=== PATIENT | female | born 1945 | race Caucasian/White ===

== ENCOUNTER 2022-01-01 14:21 | Emergency (ER) | payer MEDICARE | END 2022-01-01 17:14 | disposition home or self-care (01) | LOC: JP.ED 14:21 | DX: S92.324A Nondisplaced fracture of second metatarsal bone, right foot, initial encounter for closed fracture (principal); X58.XXXA Exposure to other specified factors, initial encounter | CPT/HCPCS: 73610-26-RT; 73610-RT; 73630-26-RT; 73630-RT; 99283 ==